=== PATIENT | female | born 1980 | race Hispanic/Latino ===

== ENCOUNTER 2019-03-17 22:53 | Inpatient (IN) | payer SELFPAY ==
--- NOTE | 2019-03-17 23:20 | RAD ---
XR Chest 1 View Portable HISTORY: Shortness of breath COMPARISON: None FINDINGS: The heart size is normal. The lungs are well expanded without focal areas of consolidation, pneumothorax or pleural effusions. IMPRESSION: No radiographic evidence of acute cardiopulmonary process.
[2019-03-17 23:22] LABS: #Basophils 0.1 thou/uL (0.0-0.2); #Eosinphils 0.6 thou/uL (0.0-0.7); #Monocytes 0.7 thou/uL (0.11-0.59); #Neutrophils 5.7 thou/uL (1.40-6.50); %Basophils 0.9 % (0.0-1.0); %Eosinophils 6.1 % (0.0-10.0); %Lymphocytes 29.7 % (21.0-51.0); %Monocytes 6.9 % (0.0-10.0); %Neutrophils 56.4 % (42.0-75.0); Hemoglobin 11.7 g/dL (12.0-16.0); Mean Corpuscular HGB CONC 32.5 g/dL (32.0-36.0); Mean Corpuscular Hemoglobin 27.4 pg (27.0-31.0); Mean Corpuscular Volume 84.4 fL (78.0-98.0); Mean Platelet Volume 7.2 fL (7.4-10.4); Platelet Count 361 thou/uL (130-400); Red Blood Cell (RBC) Count 4.28 mill/uL (4.20-5.40); White Blood Cell (WBC) Count 10.1 thou/uL (4.8-10.8)
[2019-03-17] MEDS ORDERED: Aspirin Chewable 81 MG TAB ONE (23:31)
[2019-03-17] MEDS ORDERED: Nitroglycerin 2% Ointment 1 INCH/1 GM Packet ONE (23:31)
[2019-03-17 23:47] LABS: ALT (SGPT) 14 U/L (8-55); AST (SGOT) 28 U/L (5-34); Albumin 4.1 g/dL (3.5-5.0); Alkaline Phosphatase 67 U/L (40-110); Anion Gap 11 mmol/L (10-20); BUN (Urea Nitrogen) 15 mg/dL (7.0-18.7); Bilirubin, Total 0.2 mg/dL (0.2-1.2); Calc. Creatinine Clearance 0 mL/min (70-130); Calcium 8.8 mg/dL (7.8-10.44); Carbon Dioxide 24 mmol/L (22-29); Chloride 107 mmol/L (98-107); Estimated GFR-MDRD Greater than 90; Glucose 95 mg/dL (70-105); Potassium 3.4 mmol/L (3.5-5.1); Protein, Total 7.1 g/dL (6.0-8.3); Sodium 139 mmol/L (136-145)
[2019-03-18] MEDS ORDERED: Enoxaparin Sodium 80 MG/0.8 ML SYRINGE ONE (00:04)
[2019-03-18 00:16] LABS: CKMB 13.3 ng/mL (0-6.6)
[2019-03-18] MEDS ORDERED: Potassium Chloride 20 MEQ TAB PO SCH (01:15)
[2019-03-18] MEDS ORDERED: Ondansetron PF 4 MG/2 ML Vial IVP PRN (01:46)
[2019-03-18] MEDS ORDERED: Acetaminophen 325 MG TAB PO PRN (01:46)
[2019-03-18] MEDS ORDERED: Ondansetron ODT 4 MG TAB SL PRN (01:46)
[2019-03-18 02:33] VITALS: BMI 29.0
[2019-03-18] MEDS ORDERED: Nitroglycerin 0.4 MG TAB (25 Tab Bottle) PO PRN (02:34)
[2019-03-18 03:20] LABS: CKMB 52.8 ng/mL (0-6.6)
--- NOTE | 2019-03-18 04:08 | HP ---
TIME OF ASSESSMENT: 0100 CHIEF COMPLAINT: Chest pain. HISTORY OF PRESENT ILLNESS: Ms. Matt is a 38-year-old woman with no past medical history, who presents with complaints of chest pain earlier this evening, which she states was in the center of her chest, described as a pressure as well as a separate pain on both sides of her jaw and involving both wrists. The patient states the pain was 9/10 in severity and she found it difficult to take a deep breath due to the pain. She states she laid down and after 20 minutes, the pain subsided to a 5/10 in severity. It did, however, persist and did not improve further until she received aspirin and nitroglycerin in the emergency department. The patient states since then it has remained at 2/10 in severity in the center of her chest, but the jaw pain has nearly resolved and the bilateral wrist pain is gone. She denies any associated diaphoresis, nausea, or vomiting. States she has not felt pain this severe in the past, but does recall having occasional central chest discomfort every so often, the last time every 3 months. Patient states she underwent cardiac investigations in [facility] several years ago, but is unsure what the results were. She states this was done due to strong family history of heart disease in her father and her brother who had an MD in his early 30s. REVIEW OF SYSTEMS: She denies having any recent fevers, chills, or sweats. No cough or hemoptysis. No lower extremity edema or calf tenderness. No recent long flights or car wrecks. Denies any abdominal pain or cramping. No stool changes or urinary symptoms. All other review of systems is negative. PAST MEDICAL HISTORY: None. PAST SURGICAL HISTORY: Appendectomy. SOCIAL HISTORY: Patient denies any tobacco use, alcohol consumption, or illicit drug use. FAMILY HISTORY: Strong family history of CAD. Her brother had an MD at age 32. ALLERGIES: NO KNOWN DRUG ALLERGIES. CURRENT MEDICATIONS: None. PHYSICAL EXAMINATION: GENERAL: Patient appears well developed, well nourished, is in no acute distress. VITAL SIGNS: Temperature 98.3, pulse 78, blood pressure 141/90, respirations 15, and O2 saturation 98% on room air. HEENT: Normocephalic and atraumatic. Pupils are equal, round, and reactive to light. Sclerae without icterus. Oropharynx is clear. NECK: Supple without lymphadenopathy. LUNGS: Clear to auscultation bilaterally without any wheezes, rales, or rhonchi. CARDIAC: Regular rate and rhythm without audible murmurs, rubs, or gallops. ABDOMEN: Soft, nontender, and nondistended. Normoactive bowel sounds present. No guarding or rigidity. No renal angle tenderness. EXTREMITIES: No lower leg swelling or edema. No calf tenderness. Peripheral pulses present. NEUROLOGIC: Alert and oriented x3. SKIN: Warm and dry. LABORATORY DATA: White count 7.1, hemoglobin 11.7, hematocrit 36.1, platelets 361, and neutrophils 56.4. Sodium 139, potassium 3.4, BUN 15, creatinine 0.66, GFR greater than 90, glucose 95, calcium 8.8, and total bilirubin 0.2. LFTs normal. Troponin 0.656, CK-MB 13.3. DIAGNOSTIC STUDIES: Chest x-ray, no radiographic evidence of acute cardiopulmonary process. IMPRESSION AND PLAN: Ms. Matt is a pleasant 38-year-old woman who is being admitted for the followin. [id number] myocardial infarction. She has been given enoxaparin 1 mg/kg x1. We will continue anticoagulation. I have placed a consultation to Cardiology for the morning. Patient remains with minimal pain at present. Has not had any recurring or worsening pain. We will continue to trend troponins. She is hemodynamically stable. We will keep her n.p.o. 2. Echo ordered. 3. Hypokalemia. Replace. Continue to monitor electrolytes and add on magnesium. 4. GI prophylaxis with famotidine. 5. Deep venous thrombosis prophylaxis. Patient is ambulatory. She is also on enoxaparin as above. 6. Code status. Full. Surrogate decision maker is her , Dmitriy Mcbride. Patient's case was discussed with Dr. Dejesus, who agrees with the plan of care as described above. Job ID: [id number]
[2019-03-18 06:15] LABS: Cardiac Risk 3.1 (Less than 4.5)
[2019-03-18 06:45] LABS: CKMB 60.5 ng/mL (0-6.6)
[2019-03-18] MEDS: Aspirin 81 mg Enteric Coated Tablet PO SCH (09:31)
[2019-03-18] MEDS ORDERED: Morphine 2 MG/ML SYRINGE SLOW IVP PRN (14:58)
[2019-03-18] MEDS ORDERED: Enoxaparin Sodium 80 MG/0.8 ML SYRINGE SC SCH (17:15)
[2019-03-18] MEDS: Enoxaparin Sodium 80 MG/0.8 ML SYRINGE SC SCH ×2 (17:20→23:47)
[2019-03-18] MEDS: Nitroglycerin 2% Ointment 1 INCH/1 GM Packet TOP SCH ×2 (17:23→23:51)
--- NOTE | 2019-03-18 18:15 | CON ---
DATE OF CONSULTATION: HISTORY: Juju Matt is a 38-year-old female, who presented last night complaining of chest discomfort. She states that she has had chest discomfort that from her description sounds pleuritic in nature and this will occur every 3 or 4 months. The discomfort when she presented last night within the center part of her chest, which she describes as a pressure as well as discomfort on both sides of her jaws and involving both wrists. She was given aspirin and one-inch nitroglycerin paste was placed and her pain gradually resolved. She apparently has undergone evaluation in the past in [facility] due to a strong family history of coronary artery disease, but she is uncertain of the results. She has been found to have positive cardiac enzymes. Her blood pressure at the time of admission was 194/ 104. PAST MEDICAL HISTORY: Denies any history of hypertension, diabetes, or hypercholesterolemia. MEDICATIONS: None. ALLERGIES: NONE. PAST SURGICAL HISTORY: Operations, appendectomy. SOCIAL HISTORY: She does not smoke or drink. FAMILY HISTORY: Father had coronary artery disease and of a heart attack in his 60s. A brother had OH at age 32. REVIEW OF SYSTEMS: A 10-point review of systems is otherwise unremarkable. PHYSICAL EXAMINATION: VITAL SIGNS: Blood pressure 137/84 and pulse of 69. HEENT: PERRL. NECK: Supple. CHEST: Clear. CARDIAC: S1 and S2 normal without any S3, S4, or murmurs. ABDOMEN: Normal bowel sounds without tenderness or organomegaly. EXTREMITIES: Revealed no clubbing, cyanosis, or edema. NEUROLOGIC: Grossly intact. SKIN: Warm and dry. LABORATORY DATA: EKG revealed sinus arrhythmia, otherwise unremarkable. Echocardiogram revealed mild concentric left ventricular hypertrophy with ejection fraction of 50% to 55%, evidence for diastolic dysfunction, mild mitral regurgitation, and mild tricuspid regurgitation. Hemoglobin 11.7, hematocrit 36.1, white count 10,100, and platelets 361,000. Sodium 139, potassium 3.4, chloride 107, carbon dioxide 24, BUN 15, and creatinine 0.66. Troponin I is up to 16.442 and MB 60.5. Cholesterol 149, triglycerides 121, HDL 48, and LDL 77. IMPRESSION: 1. Non-ST elevation myocardial infarction. 2. Positive family history. 3. Hypercholesterolemia with LDL of 77. 4. Mild obesity. PLAN: The situation was discussed with the patient with one of the nurses performed translation. It was recommended she undergo cardiac catheterization. Risks of this were discussed with the patient including , myocardial infarction, dye reaction, vascular injury, CVA, transfusion, limb loss, renal loss, etc. Also risk of intervention with stent placement discussed including , myocardial infarction, emergent CABG, restenosis, stent thrombosis, vessel perforation, etc. She understands and agrees to proceed. I am quite concerned about long-term compliance with medication and a bare-metal stent will be placed if needed. Also, she will be started on low-dose beta darren, topical nitrates, and atorvastatin. Job ID: [id number] MTDD
[2019-03-18] MEDS ORDERED: Atorvastatin Calcium 10 MG TAB PO SCH (21:00)
[2019-03-18] MEDS ORDERED: Metoprolol Tartrate 25 MG TAB PO SCH (21:00)
[2019-03-18] MEDS ORDERED: FLU VACC QS2019-20(6MOS UP)/PF 60 MCG/0.5 ML SYRINGE IM ONE (21:00)
[2019-03-19] MEDS ORDERED: Heparin 10,000 UNITS/1 ML VIAL ONE (06:34)
[2019-03-19] MEDS ORDERED: Lidocaine 1% (PF) 30 ML VIAL ONE (06:35)
[2019-03-19] MEDS ORDERED: Heparin (Artline) 1,000 ML ONE (06:35)
[2019-03-19] MEDS: Nitroglycerin 2% Ointment 1 INCH/1 GM Packet TOP SCH (07:19)
[2019-03-19] MEDS ORDERED: Midazolam HCl 2 mg/2 ml Vial ONE (07:23)
[2019-03-19] MEDS ORDERED: Fentanyl 100 MCG/2 ML VIAL ONE (07:24)
[2019-03-19] MEDS ORDERED: Protamine Sulfate 50 MG/5 ML VIAL ONE (07:46)
[2019-03-19] MEDS ORDERED: Sodium Chloride 0.9% 200 ML IV PRN (08:02)
[2019-03-19] MEDS ORDERED: Nitroglycerin 0.4 MG TAB (25 Tab Bottle) SL PRN (08:02)
[2019-03-19] MEDS ORDERED: Acetaminophen/Codeine 30-300mg Tablet PO PRN ×2 (08:02)
[2019-03-19] MEDS ORDERED: Sodium Chloride 0.9% 1,000 ML IV SCH (08:15)
[2019-03-19] MEDS ORDERED: Clopidogrel Bisulfate 75 MG TAB PO SCH (09:00)
[2019-03-19] MEDS ORDERED: Isosorbide Mononitrate (ER) 30 MG TAB PO SCH (09:00)
[2019-03-19] MEDS: Aspirin 81 mg Enteric Coated Tablet PO SCH (09:25)
[2019-03-19] MEDS ORDERED: Iopamidol 370 76% 100 ML VIAL ONE ×2 (10:55→10:56)
[2019-03-19] MEDS ORDERED: Iopamidol 370 76% 50 ML VIAL FS ONE (10:56)
[2019-03-19 16:05] VITALS: BP 106/65; TEMP 97.6
--- NOTE | 2019-03-20 01:44 | DIS ---
DATE OF ADMISSION: 03/18/2019 DATE OF DISCHARGE: 03/19/2019 PRIMARY CARE PROVIDER: [facility] in [facility]. DISCHARGE DIAGNOSES: 1. Ytk-ZX-lgkiqlrgl myocardial infarction type 2. 2. Tso-QC-rhgvpsuho myocardial infarction type 2, secondary to coronary artery vasospasms. 3. Hypokalemia. CONDITION OF PATIENT ON THE DAY OF DISCHARGE: Stable. I assessed Ms. Matt on the day of discharge. She denies any chest pain or shortness of breath. Vital signs are stable. S1 and S2 are heard, regular. Lungs are clear to auscultation bilaterally. CONSULTATIONS DURING THIS HOSPITALIZATION: Cardiology, Dr. Wood. DISCHARGE MEDICATIONS: 1. Nitroglycerin 0.4 mg sublingually every 5 minutes as needed. 2. Aspirin 81 mg daily. 3. Lipitor 10 mg at bedtime. 4. Plavix 75 mg daily. 5. Cardizem CD 240 mg daily. 6. Imdur 30 mg daily. HOSPITAL COURSE: Ms. Matt is a pleasant 38-year-old lady, who was admitted to [facility] for tmt-PP-sphkywygx myocardial infarction on March 18, 2019. She was seen by Cardiology Service. She underwent cardiac catheterization on March 19 and was found to have normal coronary arteries. Her chest pain resolved, and she was diagnosed with probable coronary artery vasospasms causing hwz-JM-caxbgypgs myocardial infarction type 2. She has been started on calcium channel darren. She has also been started on statin. She is being discharged home in a stable condition. POST ACUTE CARE FOLLOWUP: With primary care provider on March 26, 2019, at 1:00 p.m., and with Cardiology Service in 2 to 3 weeks. DIET: Heart healthy. ACTIVITY: Activity as tolerated. DISCHARGE DESTINATION: Home. TIME SPENT: Total amount of time spent coordinating this discharge: 32 minutes. Many thanks for allowing me to participate in your patient's care. Please feel free to contact me with any questions or concerns. Job ID: [id number]
== END 2019-03-19 17:09 | disposition home or self-care (01) | DRG 282 ==
LOC: ERS 22:53 → 2NO 03-18 01:25
PROVIDERS: ADMIT Internal Medicine; ATTEND Internal Medicine
PROC: 4A023N7 Measurement of Cardiac Sampling and Pressure, Left Heart, Percutaneous Approach (ICD-10-PCS; principal; 2019-03-19)
PROC: B2111ZZ Fluoroscopy of Multiple Coronary Arteries using Low Osmolar Contrast (ICD-10-PCS; 2019-03-19)
PROC: B2151ZZ Fluoroscopy of Left Heart using Low Osmolar Contrast (ICD-10-PCS; 2019-03-19)
DX: I20.1 Angina pectoris with documented spasm (principal); I21.A1 Myocardial infarction type 2; E87.6 Hypokalemia; E78.00 Pure hypercholesterolemia, unspecified; E66.9 Obesity, unspecified; R40.2362 Coma scale, best motor response, obeys commands, at arrival to emergency department; R40.2142 Coma scale, eyes open, spontaneous, at arrival to emergency department; R40.2252 Coma scale, best verbal response, oriented, at arrival to emergency department; Z90.49 Acquired absence of other specified parts of digestive tract; Z82.49 Family history of ischemic heart disease and other diseases of the circulatory system; Z68.29 Body mass index [BMI] 29.0-29.9, adult
CPT/HCPCS: 36415; 71045; 80053; 80061; 82553; 83735; 84484; 85025; 85347; 93005; 93010; 93306; 93458; 94760; 96372; 99152; C1769; J1644; J1650; J2001; J2250; J2720; J3010; Q9967

== ENCOUNTER 2019-04-04 19:17 | Emergency (ER) | payer SELFPAY ==
[2019-04-04 19:36] LABS: #Basophils 0.1 thou/uL (0.0-0.2); #Eosinphils 0.5 thou/uL (0.0-0.7); #Monocytes 0.7 thou/uL (0.11-0.59); #Neutrophils 8.9 thou/uL (1.40-6.50); %Basophils 0.6 % (0.0-1.0); %Eosinophils 3.7 % (0.0-10.0); %Lymphocytes 22.7 % (21.0-51.0); %Monocytes 5.5 % (0.0-10.0); %Neutrophils 67.6 % (42.0-75.0); Hemoglobin 11.1 g/dL (12.0-16.0); Mean Corpuscular HGB CONC 33.3 g/dL (32.0-36.0); Mean Corpuscular Hemoglobin 27.8 pg (27.0-31.0); Mean Corpuscular Volume 83.5 fL (78.0-98.0); Mean Platelet Volume 7.5 fL (7.4-10.4); Platelet Count 341 thou/uL (130-400); Red Blood Cell (RBC) Count 3.98 mill/uL (4.20-5.40); White Blood Cell (WBC) Count 13.1 thou/uL (4.8-10.8)
--- NOTE | 2019-04-04 19:56 | RAD ---
SINGLE VIEW OF THE CHEST: 04/04/19 COMPARISON: 03/17/19. HISTORY: Chest pain and shortness of breath. FINDINGS: Single view of the chest shows a normal sized cardiomediastinal silhouette. There is no evidence of c onsolidation, mass, or pleural effusion. The bones are unremarkable. IMPRESSION: No evidence of acute cardiopulmonary disease. POS: C
[2019-04-04 20:01] LABS: ALT (SGPT) 19 U/L (8-55); AST (SGOT) 19 U/L (5-34); Albumin 4.1 g/dL (3.5-5.0); Alkaline Phosphatase 85 U/L (40-110); Anion Gap 10 mmol/L (10-20); BUN (Urea Nitrogen) 16 mg/dL (7.0-18.7); Bilirubin, Total 0.2 mg/dL (0.2-1.2); Calc. Creatinine Clearance 0 mL/min (70-130); Calcium 8.8 mg/dL (7.8-10.44); Carbon Dioxide 22 mmol/L (22-29); Chloride 110 mmol/L (98-107); Estimated GFR-MDRD 70; Globulin 3.1 g/dL (2.4-3.5); Glucose 113 mg/dL (70-105); Potassium 3.4 mmol/L (3.5-5.1); Protein, Total 7.2 g/dL (6.0-8.3); Sodium 139 mmol/L (136-145)
[2019-04-04] MEDS ORDERED: Aspirin 325 MG TAB ONE (20:23)
== END 2019-04-04 23:41 | disposition home or self-care (01) ==
LOC: ERS 19:17
DX: M94.0 Chondrocostal junction syndrome [Tietze] (principal); I10 Essential (primary) hypertension; Z79.899 Other long term (current) drug therapy; Z79.82 Long term (current) use of aspirin
CPT/HCPCS: 36415; 71045; 80053; 84484; 85025; 93005